=== PATIENT | male | born 1985 | race American Indian/Alaskan Native ===

== ENCOUNTER 2017-07-13 08:11 | Day surgery (SDC) | payer OTHER ==
[2017-07-13 09:20] LABS: Blood Urea Nitrogen 9 mg/dL (9-20)
[2017-07-13] MEDS ORDERED: NACL ONE (09:41)
[2017-07-13] MEDS ORDERED: NITROSTAT SL ONE (09:45)
[2017-07-13] MEDS ORDERED: LOPRESSOR IV ONE (09:46)
[2017-07-13] MEDS ORDERED: NITROSTAT SL NR (09:48)
[2017-07-13 10:15] VITALS: BP 129/69
--- NOTE | 2017-07-14 11:57 | Cat Scan Report ---
LIMITED CT OF THE CHEST PER CT CORONARY ANGIOGRAPHY PROTOCOL: History: Shortness of breath. Limited CT of the chest per CT coronary angiography protocol is submitted. The cardiac portion of the exam has been previously interpreted by the [facility]. The included portions of the lungs appear clear without evidence for nodule, mass or infiltrate. The included pleural spaces are clear. No mediastinal or hilar adenopathy is evident. Included upper abdomen and solid abdominal organs are grossly within normal limits. IMPRESSION: Unremarkable limited CT of the chest as noted.
--- NOTE | 2017-07-16 05:34 | Procedure Note ---
PROCEDURE: 64-slice cardiac CTA. ORDERING PHYSICIAN: Moe Lopez M.D. INDICATION FOR THE PROCEDURE: Chest pain, equivocal and nuclear myocardial perfusion scan. PROCEDURE: The patient received 0.4 mg of nitroglycerin sublingual for coronary vasodilation prior to scanning. Using 64-slice MDCT, low dose noncontrast calcium scoring CT was performed with prospective gating followed by contrast enhanced CTA at 0.6 mm thickness with retrospective gating and 100 mL Isovue 370 IV. The scan was performed from the chava to the base of the heart. Data was reconstructed using multiple cardiac phases. FINDINGS: 1. The overall quality of the scan is excellent. 2. The total calcium score is zero indicating the absence of calcified atherosclerotic heart disease and is very low cardiovascular disease risk. 3. This is a right dominant circulation. 4. The left main originates from the left coronary cusp. 5. The left main has no evidence of obstructive disease. 6. The proximal LAD has no evidence of obstructive disease. 7. The first diagonal artery has no evidence of obstructive disease. 8. The mid LAD has no evidence of obstructive disease. 9. The distal LAD has no evidence of obstructive disease. 10. The proximal circumflex artery has no evidence of obstructive disease. 11. The mid circumflex artery has no evidence of obstructive disease. 12. The obtuse marginals have no evidence of obstructive disease. 13. The distal circumflex artery has no evidence of obstructive disease. 14. The right coronary artery originates from the right coronary cusp. 15. The proximal right coronary artery has no evidence of obstructive disease. 16. The mid right coronary artery has no evidence of obstructive disease. 17. The distal right coronary artery has no evidence of obstructive disease. 18. The PDA has no evidence of obstructive disease. 19. The PLVB has no evidence of obstructive disease. 20. Aorta, the sinus of Valsalva measures 32.9 x 33.8 mm. 21. The descending aorta at the level of the diaphragm measures 18.4 x 19 mm. 22. The aortic valve is trileaflet. 23. The main pulmonary artery measures 22.8 x 26.2 mm. 24. The right pulmonary artery measures 17.6 x 17.7 mm. 25. The left pulmonary artery measures 20.9 x 18.3 mm. 26. Pulmonary veins are normal, visualized entering the left atrium. 27. Atrial appendage has no evidence of filling defect. 28. The left ventricle is normal in size and systolic function. 29. There is no evidence of pericardial effusion. 30. Radiology overread of extracardiac structures. 31. Unremarkable limited CT of the chest. IMPRESSION: 1. Excellent quality 64-slice cardiac CTA. 2. Calcium score of zero indicating the absence of calcified atherosclerotic plaque and a very low cardiovascular disease risk. 3. No evidence of obstructive coronary disease in the right dominant circulation. 4. Unremarkable limited CT of the chest by Radiology overread. JOB# [id number]/NTS
== END 2017-07-13 10:20 ==
LOC: CATHLABREC 08:11 → EDSTATUS 08:45 → CATHLABREC 10:20
PROVIDERS: ATTEND Internal Medicine
DX: R94.39 Abnormal result of other cardiovascular function study (principal); R06.02 Shortness of breath; R07.9 Chest pain, unspecified
CPT/HCPCS: 36415; 75574; 82565; 84520; Q9967